=== PATIENT | female | born 1970 | race Hispanic/Latino ===

== ENCOUNTER → 2019-02-18 | Outpatient (CLI) | payer OTHER ==
--- NOTE | 2019-02-18 17:12 | Diagnostic Imaging Report ---
Exam: Left knee 3 views Clinical history: Left knee pain Findings: There is no evidence of acute fracture. Degenerative joint disease is noted in the medial compartment with loss in joint space, juxtaarticular sclerosis, and marginal osteophytes. Narrowing of the patellofemoral space is also noted with accompanying marginal osteophytes. The soft tissue is unremarkable. Impression: 1. No radiographic evidence of acute osseous injury. Degenerative changes as stated. Signed by: Dr. Hernán Louis MD on 02/18/2019 5:09 PM
== END ==
LOC: RAD 14:37
PROVIDERS: ATTEND Family Medicine
DX: M25.562 Pain in left knee (principal)

== ENCOUNTER 2019-09-09 14:20 | Emergency (ER) | payer OTHER ==
[~2019-09-09] VITALS: Ht 154.9 cm; Wt 129.3 kg
--- OUTSIDE RECORDS SUMMARY | 2019-09-09 14:24 | XMS REPORT ---
[facility] Address Unknown Phone Unavailable Care Team Providers Care Technical Account Manager Name Role Phone KWESI MCGEE Unavailable Unavailable Problems This patient has no known problems. Allergies, Adverse Reactions, Alerts This patient has no known allergies or adverse reactions. Medications This patient has no known medications. Results Test Description Test Time Test Comments Text Results Atomic Results Result Comments KNEE LEFT THREE VIEWS 2019-02-18 17:07:00 [facility] [address] [address] Patient Name: CESARIO FISHER MR #: [id number] : 1970 Age/Sex: 48/F Req #: [id number] [facility] Physician: Ordered by: EVERARDO PORTILLO, KWESI Kenney MD Report #: [id number] Location: [facility] Room/Bed: Procedure: [id number] DX/KNEE LEFT THREE VIEWS Exam Date: 02/18/19 Exam Time: 1451 REPORT STATUS: Signed Exam: Left knee 3 views Clinical history: Left knee pain Findings: There is no evidence of acute fracture. Degenerative joint disease is noted in the medial compartment with loss in joint space, juxtaarticular sclerosis, and marginal osteophytes. Narrowing of the patellofemoral space is also noted with accompanying marginal osteophytes. The soft tissue is unremarkable. Impression: 1. No radiographic evidence of acute osseous injury. Degenerative changes as stated. Signed by: Dr. Hernán Louis MD on 02/18/2019 5:09 PM Dictated By: JONAH LOUIS MD 08 Transcribed By: TRA on 02/18/191708 COPY TO: KWESI MCGEE
[2019-09-09] MEDS ORDERED: MORPHINE SULFATE INJ 4 MG/ML INJ 1ML IV STA (14:49)
[2019-09-09] MEDS ORDERED: VANCOMYCIN 500MG/NS 0.9% 100ML 100 ML IV ONE (15:30)
[2019-09-09] MEDS ORDERED: VANCOMYCIN 1GM/NS 250 ML 250 ML ONE (17:01)
[2019-09-09 17:16] LABS: BASOPHILS % 0.3 % (0.0-1.0); EOSINOPHILS # (AUTO) 0.1 (0.0-0.4); EOSINOPHILS % 0.8 % (0.0-6.0); HEMOGLOBIN 14.4 g/dL (12.0-16.0); LYMPHOCYTES # (AUTO) 2.3 (1.0-3.2); MEAN CORPUSCULAR HEMOGLOBIN 29.4 pg (28-32); MEAN CORPUSCULAR HGB CONC 32.7 g/dL (31-35); MONOCYTES # (AUTO) 0.8 (0.2-0.8); MONOCYTES % 8.1 % (4.4-11.3); NEUTROPHILS # (AUTO) 6.8 (2.1-6.9); NEUTROPHILS % 67.3 % (38.7-80.0); PLATELET COUNT 229 x10e3/uL (140-360); RED BLOOD COUNT 4.89 x10e6/uL (3.6-5.1); RED CELL DISTRIBUTION WIDTH 13.3 % (11.7-14.4)
== END 2019-09-09 18:39 | disposition home or self-care (01) ==
LOC: ER 14:20
DX: M79.662 Pain in left lower leg (principal); L03.116 Cellulitis of left lower limb; M79.89 Other specified soft tissue disorders
CPT/HCPCS: 36415; 83880; 85025; 93971; 99283; J2270; J3370 ×2